=== PATIENT | male | born 1985 | race Caucasian/White ===

== ENCOUNTER 2018-06-26 06:52 | Emergency (ER) | payer OTHER ==
[2018-06-26 07:11] VITALS: RESP 18; BMI 20.2
[2018-06-26 08:29] LABS: BASO # 0.1 K/uL (0.0-0.2); BASO % 0.5 % (0.0-2.0); EOS # 0.2 K/uL (0.0-0.7); EOS % 1.9 % (0.0-4.0); HEMOGLOBIN 13.9 g/dL (12.0-18.0); LYMPH # 1.6 K/uL (1.0-4.3); LYMPH % 13.4 % (20.0-40.0); MEAN CELL VOLUME 89.4 fl (80.0-94.0); MEAN CORPUSCULAR HEMOGLOBIN 31.2 pg (27.0-31.0); MEAN CORPUSCULAR HGB CONC 34.9 g/dL (33.0-37.0); MEAN PLATELET VOLUME 7.1 fl (7.2-11.7); NEUT # 9.1 K/uL (1.8-7.0); NEUT % 76.2 % (50.0-75.0); RBC 4.46 Mil/uL (4.40-5.90); RED CELL DISTRIBUTION WIDTH 13.1 % (11.5-14.5)
--- NOTE | 2018-06-26 08:37 | ED PDOC ---
HPI: Headache Time Seen by Provider: 06/26/18 07:42 Chief Complaint (Nursing): Headache Chief Complaint (Provider): Headache History Per: Patient History/Exam Limitations: no limitations Onset/Duration Of Symptoms: Days (x 8) Current Symptoms Are (Timing): Still Present Quality: Pressure, "Pain" Additional Complaint(s): 32 year old male presents to the ED for evaluation of a persistent sinus infection, onset three weeks ago. Patient reports he was seen at an urgent care and given antibiotics which he completed a full, 7 day course of. He took Mucinex Cold and Sinus, used a Netti Pot and continues to report pressure in his head. Patient has not taken any other medications, including Sudafed. Offers no other complaints at this time. PMD: none provided Past Medical History Reviewed: Historical Data, Nursing Documentation, Vital Signs Vital Signs: Last Vital Signs Temp 97.8 F 06/26/18 07:10 Pulse 93 H 06/26/18 07:10 Resp 18 06/26/18 07:10 BP 140/94 H 06/26/18 07:10 Pulse Ox 98 06/26/18 07:10 - Medical History PMH: No Chronic Diseases - Surgical History Surgical History: No Surg Hx - Family History Family History: States: Unknown Family Hx - Home Medications Home Medications: Ambulatory Orders Medication Instructions Recorded Amoxicillin/Potassium Clav 1 tab PO TID #30 tab 05/18/15 [Augmentin 500 mg-125 mg] predniSONE [predniSONE Tab] 10 mg PO TID #15 tab 05/18/15 Amoxicillin 875 mg PO BID #20 tab 08/29/15 - Allergies Allergies/Adverse Reactions: Allergies Allergy/AdvReac Type Severity Reaction Status Date / Time No Known Allergies Allergy Verified 08/29/15 21:46 Review of Systems ROS Statement: Except As Marked, All Systems Reviewed And Found Negative Neurological: Positive for: Headache (pressure in head) Physical Exam - Reviewed Nursing Documentation Reviewed: Yes Vital Signs Reviewed: Yes - Physical Exam Appears: Positive for: Non-toxic, No Acute Distress Head Exam: Positive for: ATRAUMATIC, NORMAL INSPECTION, NORMOCEPHALIC Skin: Positive for: Normal Color, Warm, Dry Eye Exam: Positive for: EOMI, Normal appearance, PERRL Neck: Positive for: Normal, Painless ROM, Supple Cardiovascular/Chest: Positive for: Regular Rate, Rhythm. Negative for: Murmur Respiratory: Positive for: Normal Breath Sounds. Negative for: Respiratory Distress Gastrointestinal/Abdominal: Positive for: Normal Exam, Soft. Negative for: Tenderness Back: Positive for: Normal Inspection. Negative for: L CVA Tenderness, R CVA Tenderness Extremity: Positive for: Normal ROM (x 4). Negative for: Deformity Neurological/Psych: Positive for: Awake, Alert, Normal Tone, Oriented, rd project manager II- XII (intact). Negative for: Motor/Sensory Deficits - Laboratory Results Result Diagrams: 06/26/18 08:10 06/26/18 08:10 - ECG O2 Sat by Pulse Oximetry: 98 (RA) Pulse Ox Interpretation: Normal Medical Decision Making Medical Decision Makin:56 MDM: workup for chronic sinus infectious Basic labs, Toradol, Sudafed Reassess patient 11:02 Headache resolved with medication. Patient no longer wants to wait for CT. With symptoms resolved, CT is no longer indicated. Patient will follow up with PMD. Sudafed given for congestion and return parameters discussed. Scribe Attestation: Documented by Jossie Macdonald, acting as a scribe Gaetano Collazo MD Provider Scribe Attestation: All medical record entries made by the Scribe were at my direction and personally dictated by me. I have reviewed the chart and agree that the record accurately reflects my personal performance of the history, physical exam, medical decision making, and the department course for this patient. I have also personally directed, reviewed, and agree with the discharge instructions and disposition. Disposition - Clinical Impression Clinical Impression: Headache, Congestion of both ears - Disposition Disposition: Routine/Home Disposition Time: 11:02 Additional Instructions: Take Motrin as needed for headache. Take Sudafed for congestion. Follow up with primary medical doctor as needed. Return to the emergency department if symptoms worsen. Instructions: Sinus Headache (DC) Forms: [employer] (Sammarinese), [facility] (Citizen Of [place]) Print Language: SYRIAC
[2018-06-26 08:56] LABS: BLOOD UREA NITROGEN 12 mg/dl (9-20); CALCIUM 9.7 mg/dL (8.4-10.2); GFR NON-AFRICAN AMERICAN > 60
[2018-06-26 11:16] VITALS: BP 135/87; PULSE 92; TEMP 98.3; O2SAT 99
== END 2018-06-26 11:15 | disposition home or self-care (01) ==
LOC: H.ER 06:52
DX: R51 Headache (principal); H93.93 Unspecified disorder of ear, bilateral
CPT/HCPCS: 80048; 85025; 96374; 99285; J1885

== ENCOUNTER 2018-08-10 01:41 | Emergency (ER) | payer OTHER ==
[2018-08-10 01:41] VITALS: BMI 20.2
--- NOTE | 2018-08-10 02:31 | ED PDOC ---
HPI: Headache Time Seen by Provider: 08/10/18 01:59 Chief Complaint (Nursing): Headache Chief Complaint (Provider): Headache History Per: Patient History/Exam Limitations: no limitations Onset/Duration Of Symptoms: Persistent Current Symptoms Are (Timing): Still Present Associated Symptoms: denies: Photophobia, Blurred Vision Additional Complaint(s): 33yo male, otherwise well, comes to ER reporting persistent sinus congestion and now reports a posterior headache. Patient was seen in this ER on 06/26 for the sinus congestion and frontal headache, and per that note, patient had completed a course of antibiotics given to him by an urgent care. At that time, patient was given medications with relief of headache, did not have his CT head done and was discharged home. He now complains severe sinus pressure as well as a posterior headache. Patient reports the headache has been gradual onset, worsening over the past 2 weeks; denies any thunderclap sensation. He denies any cough, fever, vomiting, and sore throat. No additional complaints. Past Medical History Reviewed: Historical Data, Nursing Documentation, Vital Signs Vital Signs: Last Vital Signs Temp 97.6 F 08/10/18 01:46 Pulse 104 H 08/10/18 01:46 Resp 18 08/10/18 01:46 BP 138/88 08/10/18 01:46 Pulse Ox 100 08/10/18 01:46 Primary Care Provider: FAMILY PROVIDER,NO - Medical History PMH: No Chronic Diseases - Family History Family History: States: Unknown Family Hx - Home Medications Home Medications: Ambulatory Orders Medication Instructions Recorded Amoxicillin/Potassium Clav 1 tab PO TID #30 tab 05/18/15 [Augmentin 500 mg-125 mg] predniSONE [predniSONE Tab] 10 mg PO TID #15 tab 05/18/15 Amoxicillin 875 mg PO BID #20 tab 08/29/15 Amoxicillin/Clavulanate [Augmentin 1 tab PO BID #14 tab 08/10/18 875 MG-125 MG] - Allergies Allergies/Adverse Reactions: Allergies Allergy/AdvReac Type Severity Reaction Status Date / Time No Known Allergies Allergy Verified 08/29/15 21:46 Review of Systems ROS Statement: Except As Marked, All Systems Reviewed And Found Negative Eyes: Negative for: Vision Change ENT: Positive for: Nose Congestion, Other (sinus pressure) Gastrointestinal: Negative for: Nausea, Vomiting Neurological: Positive for: Headache. Negative for: Weakness, Numbness Physical Exam - Reviewed Nursing Documentation Reviewed: Yes Vital Signs Reviewed: Yes - Physical Exam Appears: Positive for: Non-toxic, No Acute Distress Head Exam: Positive for: ATRAUMATIC, NORMAL INSPECTION, NORMOCEPHALIC Skin: Positive for: Normal Color Eye Exam: Positive for: Normal appearance, EOMI, PERRL ENT: Positive for: Nasal Congestion Neck: Positive for: Supple Cardiovascular/Chest: Positive for: Regular Rate, Rhythm Respiratory: Positive for: Normal Breath Sounds Gastrointestinal/Abdominal: Positive for: Normal Exam Extremity: Positive for: Normal ROM Neurological/Psych: Positive for: Awake, Alert, Normal Tone, Symmetric/Intact Strength, Oriented (x 3), Gait (stable), circuit judge II-XII (intact). Negative for: Motor/Sensory Deficits, Facial Droop - ECG O2 Sat by Pulse Oximetry: 100 (RA) Pulse Ox Interpretation: Normal Medical Decision Making Medical Decision Making: Impression: Sinus congestion, headache rule out intracranial processm, rule out sinusitis Plan: -- CT Head w.o contrast 0402 Patient with no relief after taking Motrin. Reglan IV and Sudafed PO ordered. CT Head Findings: Normal size of the ventricles and extra-axial spaces for the patient's age. Normal white matter tracts of the supratentorial brain. Normal basal ganglia and thalami. Normal brainstem. Normal cerebellum. There is no demonstrated extra-axial, intraparenchymal, or intraventricular hemorrhage. There are no findings of an acute ischemic infarction. Normal calvarium. There is no demonstrated fracture. Normal soft tissue structures. Mild chronic mucosal inflammatory changes of the maxillary sinuses and ethmoid air cells. Normal remaining visualized paranasal sinuses. Syed cisterna magna. Normal variant. IMPRESSION: Normal unenhanced CT scan of the brain. Mild chronic mucosal inflammatory changes of the maxillary sinuses and ethmoid air cells. CT findings discussed with patient. Patient given prescription for augmentin for sinusitis, informed to take as prescribed. Patient to follow up with PMD in 1-2 days. Return precautions given. Scribe Attestation: Documented by Flavia Doyle, acting as a scribe for Jose Marcos MD. Provider Scribe Attestation: All medical record entries made by the Scribe were at my direction and personally dictated by me. I have reviewed the chart and agree that the record accurately reflects my personal performance of the history, physical exam, medical decision making, and the department course for this patient. I have also personally directed, reviewed, and agree with the discharge instructions and disposition. Disposition - Clinical Impression Clinical Impression: Acute headache - Patient ED Disposition Is Patient to be Admitted: No Counseled Patient/Family Regarding: Studies Performed, Diagnosis, Need For Followup - Disposition Referrals: [facility] [Outside] [facility] [Outside] Disposition: Routine/Home Disposition Time: 04:08 Condition: IMPROVED Additional Instructions: FOLLOW UP WITH THE CLINIC IN 1-2 DAYS RETURN TO THE ED WITH ANY WORSENING OR CONCERNING SYMPTOMS Prescriptions: Amoxicillin/Clavulanate [Augmentin 875 MG-125 MG] 1 tab PO BID #14 tab Instructions: Sinusitis, Adult (DC), Acute Headache (ED) Forms: [employer] (Italian)
[2018-08-10 05:26] VITALS: BP 146/93; PULSE 94; RESP 16; TEMP 97.8
--- NOTE | 2018-08-10 11:15 | CT ---
Date of service: 08/10/2018 PROCEDURE: CT HEAD WITHOUT CONTRAST. HISTORY: headache COMPARISON: None available. TECHNIQUE: Axial computed tomography images were obtained through the head/brain without intravenous contrast. Radiation dose: Total exam DLP = 846.5 mGy-cm. This CT exam was performed using one or more of the following dose reduction techniques: Automated exposure control, adjustment of the mA and/or kV according to patient size, and/or use of iterative reconstruction technique. FINDINGS: HEMORRHAGE: No intracranial hemorrhage. BRAIN: Normal sharp-white matter differentiation and density are appreciated throughout the cerebrum and cerebellum with the brainstem appearing unremarkable as well. There is no mass effect. There is no suspicious extra-axial fluid collection and the midline brain anatomy appears diffusely unremarkable. Mildly prominent cisterna magna identified. VENTRICLES: Unremarkable. No hydrocephalus. CALVARIUM: Unremarkable. PARANASAL SINUSES: Limited bilateral ethmoid sinus disease noted. Questionable erosion of midportion of cartilaginous segment at the anterior nasal septum MASTOID AIR CELLS: Unremarkable as visualized. No inflammatory changes. OTHER FINDINGS: None. IMPRESSION: Unremarkable unenhanced head CT. Questionable erosion of mid cartilaginous segment of anterior nasal septum. Direct visualization recommended. This finding is discordant from preliminary report. Mild bilateral ethmoid sinus disease noted. Preliminary report provided by [employer], 08/10/2018 4 a.m.. PA review added.
[2018-08-11 00:10] VITALS: O2SAT 100
== END 2018-08-10 05:20 | disposition home or self-care (01) ==
LOC: H.ER 01:41
DX: R51 Headache (principal); J32.9 Chronic sinusitis, unspecified
CPT/HCPCS: 70450; 96374; 99285; J2765

== ENCOUNTER 2018-08-12 19:34 | Emergency (ER) | payer OTHER ==
[2018-08-12 19:34] VITALS: BMI 20.2
[2018-08-12 20:24] VITALS: BP 158/89; PULSE 102; RESP 16; TEMP 98.7; O2SAT 100
--- NOTE | 2018-08-12 20:49 | ED PDOC ---
HPI: General Adult Time Seen by Provider: 08/12/18 20:30 Chief Complaint (Nursing): ENT Problem Chief Complaint (Provider): ENT Problem History Per: Patient History/Exam Limitations: no limitations Additional Complaint(s): 33 year old male presents to the ED for evaluation s/p a callback on his CT maxillofacial which showed a possible erosion inside his nose. Patient was seen on 08/10/18 and diagnosed with sinusitis, compliant with his prescribed antibiotics. He states his symptoms persist, unrelieved by nasal spray which he has been using sparingly. Otherwise, denies other complaints. Past Medical History Reviewed: Historical Data, Nursing Documentation, Vital Signs Vital Signs: Last Vital Signs Temp 98.7 F 08/12/18 20:24 Pulse 102 H 08/12/18 20:24 Resp 16 08/12/18 20:24 BP 158/89 H 08/12/18 20:24 Pulse Ox 100 08/12/18 20:24 Primary Care Provider: FAMILY PROVIDER,NO - Medical History PMH: No Chronic Diseases - Surgical History Surgical History: No Surg Hx - Family History Family History: States: Unknown Family Hx - Social History Current smoker - smoking cessation education provided: Yes Alcohol: None Drugs: Denies - Home Medications Home Medications: Ambulatory Orders Medication Instructions Recorded Amoxicillin/Potassium Clav 1 tab PO TID #30 tab 05/18/15 [Augmentin 500 mg-125 mg] predniSONE [predniSONE Tab] 10 mg PO TID #15 tab 05/18/15 Amoxicillin 875 mg PO BID #20 tab 08/29/15 Amoxicillin/Clavulanate [Augmentin 1 tab PO BID #14 tab 08/10/18 875 MG-125 MG] Ibuprofen [Motrin Tab] 600 mg PO Q6 PRN #20 tab 08/12/18 Pseudoephedrine HCl [Sudafed 120 mg PO BID #12 tablet.er 08/12/18 12-Hour] - Allergies Allergies/Adverse Reactions: Allergies Allergy/AdvReac Type Severity Reaction Status Date / Time No Known Allergies Allergy Verified 08/29/15 21:46 Review of Systems ROS Statement: Except As Marked, All Systems Reviewed And Found Negative ENT: Positive for: Nose Congestion, Other (sinus pain) Physical Exam - Reviewed Nursing Documentation Reviewed: Yes Vital Signs Reviewed: Yes - Physical Exam Comments: GENERAL APPEARANCE: Patient is awake, alert, oriented x 3, in no acute distress. SKIN: Warm, dry; (-) cyanosis. EYES: (-) conjunctival pallor. ENMT: Mucous membranes moist. Airway patent: (-) stridor. Pharynx: (-) swelling, (-) erythema, (-) exudate. Ears: (-) erythema, (-) bulging. Nose: (+) bilateral maxillary sinus tenderness, (-) septal hematoma, (-) septal perforation or erosion. Audible nasal congestion noted. NECK: full ROM, (-) tenderness CHEST AND RESPIRATORY: (-) rhonchi, (-) rales, (-) wheezes, (-) pleural rub; breath sounds equal bilaterally. HEART AND CARDIOVASCULAR: RRR NEURO AND PSYCH: Mental status as above. - ECG O2 Sat by Pulse Oximetry: 100 (RA) Pulse Ox Interpretation: Normal Medical Decision Making Medical Decision Making: Time: 2049 Initial Impression: sinusitis Initial Plan: --no concern for septal perforation --Patient stable for discharge with scripts for Sudafed, Ibuprofen, and an ENT referral for chronic sinusitis. All questions answered and return parameters discussed. Discussed results, diagnosis, treatment, return precautions and f/u with pt who is understanding, in agreement and stable for dc Scribe Attestation: Documented by Meche Iqbal, acting as a scribe for Francis Scanlon PA-C. Provider Scribe Attestation: All medical record entries made by the Scribe were at my direction and personally dictated by me. I have reviewed the chart and agree that the record accurately reflects my personal performance of the history, physical exam, medical decision making, and the department course for this patient. I have also personally directed, reviewed, and agree with the discharge instructions and disposition. Disposition - Clinical Impression Clinical Impression: Sinusitis - Patient ED Disposition Is Patient to be Admitted: No Counseled Patient/Family Regarding: Studies Performed, Diagnosis, Need For Followup, Rx Given - Disposition Referrals: Jorge Telles MD [Staff Provider] - Disposition: Routine/Home Disposition Time: 21:01 Condition: STABLE Additional Instructions: Return to ED for new or worsening symptoms, fever >100.4, severe headache, changes in vision, unable to swallow. Follow up with your primary care doctor or ENT specialist as listed. Continue taking medications as previously prescribed. Take medications as prescribed today. Prescriptions: Ibuprofen [Motrin Tab] 600 mg PO Q6 PRN #20 tab PRN Reason: Pain, Moderate (4-7) Pseudoephedrine HCl [Sudafed 12-Hour] 120 mg PO BID #12 tablet.er Instructions: Sinusitis in Adults Forms: [facility] ED School/Work Excuse Print Language: BENINESE - POA Present On Arrival: None
== END 2018-08-12 21:08 | disposition home or self-care (01) ==
LOC: H.ER 19:34
DX: J32.9 Chronic sinusitis, unspecified (principal); F17.200 Nicotine dependence, unspecified, uncomplicated